=== PATIENT | female | born 1965 | race Caucasian/White ===

== ENCOUNTER 2024-11-01 08:39 | Outpatient (OUT) | payer OTHER, SELFPAY | END 2024-11-01 08:40 | disposition home or self-care (01) | LOC: PST 08:39 | PROVIDERS: Visit Provider Surgery | DX: Z01.818 Encounter for other preprocedural examination (principal); L72.0 Epidermal cyst; D48.5 Neoplasm of uncertain behavior of skin ==

== ENCOUNTER 2024-11-02 09:09 | Day surgery (SDC) | payer OTHER, SELFPAY ==
--- NOTE | 2024-11-02 | OP_ITS ---
OPERATION DATE: 11/02/2024 PREOPERATIVE DIAGNOSIS: Enlarging epidermal cyst upper mid back. POSTOPERATIVE DIAGNOSIS: Enlarging epidermal cyst upper mid back. PROCEDURE: Excisional biopsy epidermal cyst mid upper back. SURGEON: Rico Mancera M.D. ANESTHESIA: Local with 0.5% Marcaine plain. ESTIMATED BLOOD LOSS: Less than 5 mL. INDICATIONS AND CONSENT: Patient is a 58-year-old female with a long history of enlarging epidermal cyst of the mid upper back, no previous infection. Indications, risks, benefits, alternatives of proceeding with the excisional biopsy under local anesthesia were explained extensively to the patient, including risks of bleeding, infection, scarring, pain, recurrence, need for further surgery. All of her questions were answered. Informed consent was obtained. PROCEDURE: Patient brought to the operating room, placed in the right lateral decubitus position. The area was prepped and draped in the usual sterile fashion. It was anesthetized with 0.5% Marcaine plain. Elliptical incision was made in the area of the skin crease, encompassing the central pore of the cyst. Total length of incision was 3 cm. The cyst was approximately 2.5 cm. The cyst was carefully dissected out using sharp dissection. It was sent off to Pathology. The wound was irrigated. There was good hemostasis. The deep subcutaneous tissues were re-approximated with several interrupted 3-0 nylon mattress sutures. The skin was then closed with 4-0 nylon simple sutures. There was good hemostasis. A sterile pressure dressing was applied. Sponge and needle counts were correct x3 per nursing personnel. Patient tolerated procedure well, was discharged back to the recovery room and then to home in good condition. She is to take ibuprofen as needed for pain. She is to follow up in two weeks for suture removal,, call sooner with any problems or questions. CC: Grayson Brown D.O. [facility]
[2024-11-02 09:18] VITALS: BP 148/99; PULSE 95; TEMP 36.1; O2SAT 95
[2024-11-02 09:51] VITALS: BP 140/80; PULSE 65; O2SAT 95
[2024-11-02 09:53] VITALS: PULSE 82; O2SAT 96
[2024-11-02] MEDS: BUPIVACAINE HCL 0.5% PF 50 MG/10 ML VIAL INJ (09:55)
[2024-11-02 10:00] VITALS: BP 160/70
== END 2024-11-02 10:19 | disposition home or self-care (01) ==
PROVIDERS: PCP Family Medicine; Visit Provider Surgery
PROC: (CPT 11403; principal; 2024-11-02 09:30)
DX: L72.0 Epidermal cyst (principal)
CPT/HCPCS: 11403; 12032; 88304; J0665